=== PATIENT | male | born 1985 | race Caucasian/White ===

== ENCOUNTER 2019-01-28 17:21 | Emergency (ER) | payer MEDICAID ==
[~2019-01-28] VITALS: Ht 182.9 cm; Wt 118.2 kg
[2019-01-28 17:43] VITALS: BP 145/78
[2019-01-28] MEDS ORDERED: BACDS PO (18:50)
== END 2019-01-28 19:04 | disposition home or self-care (01) ==
LOC: ER 17:21
DX: L03.113 Cellulitis of right upper limb (principal); Z79.899 Other long term (current) drug therapy
CPT/HCPCS: 99283